=== PATIENT | female | born 1965 | race Caucasian/White ===

== ENCOUNTER 2022-05-14 16:26 | Emergency (ER) | payer SELFPAY ==
[2022-05-14] MEDS ORDERED: Ibuprofen 800 MG TAB ONE (16:41)
== END 2022-05-14 17:25 | disposition home or self-care (01) ==
LOC: BURERS 16:26
DX: J10.1 Influenza due to other identified influenza virus with other respiratory manifestations (principal)
CPT/HCPCS: 87804; 99283